=== PATIENT | male | born 1975 | race Hispanic/Latino ===

== ENCOUNTER 2018-03-21 07:57 | Emergency (ER) | payer BC, OTHER ==
[~2018-03-21 07:57] MED LIST: AMLO10TA2 PO; GLIP10TA9 PO; HYDR12.54 PO; LOSA100T29 PO; LOVA10TA2 PO; METF10004 PO; SITA100T12 PO
== END 2018-03-21 08:31 | disposition home or self-care (01) ==
LOC: EDH 07:57
DX: M54.5 Low back pain (principal); E11.9 Type 2 diabetes mellitus without complications; I10 Essential (primary) hypertension; E78.5 Hyperlipidemia, unspecified; Z98.890 Other specified postprocedural states